=== PATIENT | female | born 1960 | race Caucasian/White ===

== ENCOUNTER 2017-01-12 11:48 | Day surgery (SDC) | payer OTHER ==
[2017-01-12] MEDS ORDERED: LIDOCAINE 1% 5 ML SDV ONE (12:34)
[2017-01-12] MEDS ORDERED: SODIUM BICARBONATE 10 MEQ/10 ML SYR IVP ONE (12:48)
[2017-01-12] MEDS ORDERED: LIDOCAINE 1% 30 ML SDV ONE (12:48)
[2017-01-12] MEDS ORDERED: BUPIVACAINE 0.5% 30 ML SDV ONE (12:48)
[2017-01-12] MEDS ORDERED: CEFAZOLIN 2 GM/DEXTROSE/100 ML BAG IV ONE (12:48)
[2017-01-12] MEDS ORDERED: HEPARIN 50,000 UNIT/10 ML VIAL ONE (12:57)
[2017-01-12] MEDS ORDERED: HEPARIN 50,000 UNIT/10 ML VIAL MISC ONE (13:00)
[2017-01-12] MEDS ORDERED: PROPOFOL 200 MG/20 ML VIAL ONE (13:06)
[2017-01-12] MEDS ORDERED: fentaNYL 100 MCG/2 ML INJ ONE (13:06)
[2017-01-12] MEDS ORDERED: LIDOCAINE 2% JELLY 5 ML TUBE ONE (13:07)
[2017-01-12] MEDS ORDERED: ONDANSETRON 4 MG/2 ML VIAL ONE (13:07)
[2017-01-12] MEDS ORDERED: ceFAZolin 2 GM/DEXTROSE 100 ML IV ONE (13:30)
--- NOTE | 2017-01-12 14:34 | GOP ---
[f rep st] OPERATIVE REPORT DATE OF OPERATION: 01/12/2017 SURGEON: Jean-Paul Epps MD WELFARE SUPERVISOR: None. ANESTHESIOLOGIST: Dr. Hatch PREOPERATIVE DIAGNOSIS: Chronic renal failure. POSTOPERATIVE DIAGNOSIS: Chronic renal failure. PROCEDURE PERFORMED: Right internal jugular tunneled palindrome dialysis catheter with fluoroscopic and ultrasound guidance. FINDINGS: The patient was found to have good position and good flow of the catheter. DESCRIPTION OF PROCEDURE: Patient was taken to the operating room, where she received light general anesthesia by Dr. Hatch. She was placed in the supine position, and prepped and draped in the usua l sterile fashion. Areas of concern were infiltrated with 0.5% Marcaine. Using ultrasound guidance, a direct stick was made into the right internal jugular vein. Guidewire was introduced, position was confirmed on flu oroscopy. A tunneled palindromic catheter was brought in through a separate stab incision on the an terior chest wall and tunneled up over the clavicle into the neck incision. It was then inserted in to the right atrium after a series of dilators were passed over the guidewire and an introducer grant th. Good backflow was achieved. The catheter was flushed with heparin and saline, and then was ins tilled with the appropriate amount of 5000 units/cc heparin, secured to the exit site with 3-0 Prole ne interrupted sutures, and the entrance site was closed with 3-0 Prolene mattress sutures. All are as were infiltrated with 0.5% Marcaine. The wounds were dressed. She tolerated the procedure well, taken to recovery room in good condition. No complications. /[id number]/MODL
== END 2017-01-12 15:30 | disposition home or self-care (01) ==
LOC: FSGY 11:48
PROVIDERS: ATTEND Surgery
PROC: 02HV33Z Insertion of Infusion Device into Superior Vena Cava, Percutaneous Approach (ICD-10-PCS; principal; 2017-01-12 13:45)
DX: Z45.2 Encounter for adjustment and management of vascular access device (principal); N18.9 Chronic kidney disease, unspecified; Q61.3 Polycystic kidney, unspecified; I12.9 Hypertensive chronic kidney disease with stage 1 through stage 4 chronic kidney disease, or unspecified chronic kidney disease
CPT/HCPCS: C1750; J0690; J1644; J2405; J2704; J3010

== ENCOUNTER 2017-01-18 05:39 | Day surgery (SDC) | payer OTHER ==
[2017-01-18] MEDS ORDERED: NS 1,000 ML IV ONE (06:00)
[2017-01-18] MEDS ORDERED: ceFAZolin 2 GM/DEXTROSE 100 ML IV ONE (06:00)
[2017-01-18 06:41] LABS: ANION GAP 20 mEq/L (8-16); CARBON DIOXIDE 15 mEq/l (22-31); CHLORIDE 103 mEq/L (97-110); GLOMERULAR FILTRATION RATE 3; GLUCOSE 103 mg/dL (70-100); POTASSIUM 4.2 mEq/L (3.5-5.2); SODIUM 138 mEq/L (134-144)
[2017-01-18 07:03] LABS: CREATININE 12.6 mg/dL (0.6-1.0)
[2017-01-18] MEDS ORDERED: SKIN ADHESIVE (DERMABOND) 1 EACH TP ONE (07:05)
[2017-01-18] MEDS ORDERED: THROMBIN (RECOMBINANT) 5,000 UNIT VIAL TP ONE (07:06)
[2017-01-18] MEDS ORDERED: THROMBIN (RECOMBINANT) 20,000 UNIT SPRAY TP ONE (07:06)
[2017-01-18] MEDS ORDERED: PROTAMINE SULFATE 50 MG/5 ML VIAL IVP ONE (07:06)
[2017-01-18] MEDS ORDERED: BUPIVACAINE 0.5% 30 ML SDV ONE (07:06)
[2017-01-18] MEDS ORDERED: PAPAVERINE HCL 60 MG/2 ML SDV ONE (07:07)
[2017-01-18] MEDS ORDERED: DEXAMETHASONE 4 MG/ML VIAL ONE ×2 (07:23→07:24)
[2017-01-18] MEDS ORDERED: fentaNYL 100 MCG/2 ML INJ ONE (07:23)
[2017-01-18] MEDS ORDERED: PROPOFOL 200 MG/20 ML VIAL ONE (07:23)
[2017-01-18] MEDS ORDERED: LIDOCAINE 2% 5 ML SDV ONE (07:23)
[2017-01-18] MEDS ORDERED: ONDANSETRON 4 MG/2 ML VIAL ONE (07:24)
[2017-01-18] MEDS ORDERED: LIDOCAINE 2% JELLY 5 ML TUBE ONE (07:24)
[2017-01-18] MEDS ORDERED: HEPARIN 10,000 UNIT/10 ML MDV ONE (07:41)
[2017-01-18] MEDS ORDERED: epHEDrine SULFATE 10 MG/ML SYR ONE (07:46)
[2017-01-18] MEDS ORDERED: HYDROCODONE/APAP 5/325 TAB ONE (10:38)
--- NOTE | 2017-01-26 13:08 | GOP ---
DATE OF OPERATION: 01/18/2017 SURGEON: Jean-Paul Epps MD ANESTHESIOLOGIST PHYSICIAN: NICK Blank ANESTHESIOLOGIST: Dr. Parsons. PREOPERATIVE DIAGNOSIS: Chronic renal failure. POSTOPERATIVE DIAGNOSIS: Chronic renal failure. PROCEDURE PERFORMED: 1. Exploration of the left radial artery. 2. Ultrasound vein mapping. 3. Left brachiocephalic arteriovenous fistula. FINDINGS: Patient was found to have a tiny inadequate radial artery at the wrist and an adequate ce phalic vein at the wrist and in the upper arm. DESCRIPTION OF PROCEDURE: Patient was taken to the operating room, where she received satisfactory general endotracheal anesthesia by Dr. Parsons, placed in the supine position with her left arm outstr etched on an arm board, prepped and draped in the usual sterile fashion. A short longitudinal incis ion was made over the radial artery which was dissected free. It was quite tiny being less than 2 m m even with basal dilators being placed on it. It did not improve. It did not feel adequate for a source for a radiocephalic fistula at the wrist. A 2nd incision was made at the antecubital space. Prior to that the veins of the arm had been mapped with ultrasound thus showing a good cephalic vei n in forearm and upper arm as well as a great basilic vein in the upper arm. Intravenous incision w as made in the antecubital space. Dissection extended over to the cephalic vein which was mobilized above and below this level. The biceps aponeurosis was divided, and the brachial artery was dissec karly free and encircled with vessel loops. The patient was systemically heparinized after adequate m obilization was done and after adequate circulation time, the cephalic vein was ligated distally wit h 2-0 silk ties, was divided and transposed over to the brachial artery. There was good back flow i n the vein. An end-to-side anastomosis was made to the brachial artery creating an 8 mm AV fistula anastomosis. Flow was first established through the AV fistula then back down the hand. Maintained good flow to the hand with good capillary filling, a pulse in the radial artery and excellent flow in the fistula. The anastomosis was created with a running 6-0 Prolene suture. Heparin was then re versed with protamine. The wound was infiltrated with 0.5% Marcaine. Topical thrombin was placed i n the suture sites and the subcu was closed with 3-0 Vicryl, skin with a 4-0 Monocryl subcuticular s titch. Good palpable thrill in the AV fistula. The wound was dressed. She tolerated the procedure well was taken to the recovery room in good condition. There were no complications. /[id number]/MODL
== END 2017-01-18 11:10 | disposition home or self-care (01) ==
LOC: FSGY 05:39
PROVIDERS: ATTEND Surgery
PROC: 03180ZD Bypass Left Brachial Artery to Upper Arm Vein, Open Approach (ICD-10-PCS; principal; 2017-01-18 07:15)
DX: Q61.3 Polycystic kidney, unspecified (principal); I12.9 Hypertensive chronic kidney disease with stage 1 through stage 4 chronic kidney disease, or unspecified chronic kidney disease; N18.9 Chronic kidney disease, unspecified
CPT/HCPCS: J0690; J1100; J1644; J2405; J2440; J2704; J2720; J3010

== ENCOUNTER 2017-08-14 14:40 | Emergency (ER) | payer OTHER ==
--- NOTE | 2017-08-14 15:04 | EDPHY ---
H & P Stated Complaint: Dialysis fistula not working;last dialysis yesterday;here for IR? Time Seen by Provider: 08/14/17 14:50 HPI/ROS: CHIEF COMPLAINT: Fistula issue HISTORY OF PRESENT ILLNESS: The patient is a 56-year-old female with history of chronic kidney disease, on thrice weekly dialysis, who presents today with an acute fistula issue. The patient was dialyzed yesterday at the [facility], at that time she had no fistula problems. Mid-afternoon today the patient no longer had a thrill from her fistula. She developed a bump at the fistula site that is mildly painful. She undergoes dialysis Mon/Wed/Fri. The patient additionally reports multiple episodes of diarrhea from 2am last night until 11am today. She had associated nausea, abdominal cramping, and clamminess. She believes the diarrhea was secondary to a phosphate absorbing medication that she recently started. The patient is feeling much better now. REVIEW OF SYSTEMS: A ten point review of systems was performed and is negative with the exception of the items mentioned in the HPI. Past medical history: Polycystic kidney, CKD on dialysis. Past surgical history: Denies aside from dialysis access. Family history: Noncontributory. Social history: . Lives in [place]. General Appearance: Alert. Vital signs reviewed. Heart rate 106, blood pressure 97/72. Eyes: Pupils equal and round, no conjunctival injection, no discharge. Anicteric. ENT, Mouth: Mucous membranes are moist, no oropharyngeal erythema or edema. Neck: No jugular venous distention. Respiratory: Lungs are clear to auscultation; no wheezes, rales, or rhonchi. Cardiovascular: Regular rate and rhythm; no murmur, rub, or gallop. Gastrointestinal: Abdomen is soft and nontender, hepatomegaly, mild distention. Skin: Warm and dry, no rashes on exposed skin, normal color. Back: No CVAT. Extremities: Left upper extremity: Well healed surgical incision at site of dialysis access. No palpable thrill. Venous bruising from dialysis. Tender pulsatile bump in antecubital fossa. Neurological: Alert and oriented. Moving all four extremities easily and equally. Psychiatric: Normal affect. Source: Patient Exam Limitations: No limitations - Personal History Current Tetanus Diphtheria and Acellular Pertussis (TDAP): Yes - Medical/Surgical History Hx Asthma: No Hx Chronic Respiratory Disease: No Hx Diabetes: No Hx Cardiac Disease: No Hx Renal Disease: No Hx Cirrhosis: No Hx Alcoholism: No Hx HIV/AIDS: No Hx Splenectomy or Spleen Trauma: No Other PMH: PSH: appy; t&a;. PMH: polycystic kidney disease; htn; - Social History Smoking Status: Former smoker Constitutional: Initial Vital Signs Temperature (C) 36.7 C 08/14/17 14:43 Heart Rate 106 H 08/14/17 14:43 Respiratory Rate 18 08/14/17 14:43 Blood Pressure 97/72 L 08/14/17 14:43 O2 Sat (%) 98 08/14/17 14:43 O2 Delivery Mode Room Air Allergies/Adverse Reactions: midazolam HCl [From Versed] Allergy (Unknown, Verified 08/15/17 10:30) Home Medications: Medication Instructions Recorded Lisinopril 12/06/15 Metoprolol Tartrate 01/15/17 Medical Decision Making - Diagnostics Imaging Results: Imaging Impressions Angioplasty 08/14/17 00:00 Impression: 1. Clotted fistula from a very focalized arterial plug at the arterial anastomosis. 2. Declot performed using Ben thrombectomy, as well as TPA lysis and angioplasty. 3. No significant arterial anastomotic stenosis identified. I am speculating that this clotted because the patient was holding her elbow in a kinked position with her 10 hour history of vomiting. This was discussed with the patient, who is instinctively felt that that probably is the case. 4. No venous outflow tract stenosis. Now widely patent fistula with rapid antegrade flow. 5. A little bit of a filling defect left that is not hemodynamically significant where the sheath went into the fistula. This likely will resolve over time. The patient was recovered in the emergency room and subsequently discharged from the emergency room. Infusion Thrombolysis 08/14/17 00:00 Impression: 1. Clotted fistula from a very focalized arterial plug at the arterial anastomosis. 2. Declot performed using Ben thrombectomy, as well as TPA lysis and angioplasty. 3. No significant arterial anastomotic stenosis identified. I am speculating that this clotted because the patient was holding her elbow in a kinked position with her 10 hour history of vomiting. This was discussed with the patient, who is instinctively felt that that probably is the case. 4. No venous outflow tract stenosis. Now widely patent fistula with rapid antegrade flow. 5. A little bit of a filling defect left that is not hemodynamically significant where the sheath went into the fistula. This likely will resolve over time. The patient was recovered in the emergency room and subsequently discharged from the emergency room. AV Shunt Angiogram 08/14/17 15:15 Impression: 1. Clotted fistula from a very focalized arterial plug at the arterial anastomosis. 2. Declot performed using Ben thrombectomy, as well as TPA lysis and angioplasty. 3. No significant arterial anastomotic stenosis identified. I am speculating that this clotted because the patient was holding her elbow in a kinked position with her 10 hour history of vomiting. This was discussed with the patient, who is instinctively felt that that probably is the case. 4. No venous outflow tract stenosis. Now widely patent fistula with rapid antegrade flow. 5. A little bit of a filling defect left that is not hemodynamically significant where the sheath went into the fistula. This likely will resolve over time. The patient was recovered in the emergency room and subsequently discharged from the emergency room. ED Course/Re-evaluation: The patient has a history of CKD, on dialysis. This afternoon she developed a tender bump at the antecubital fossa, with no palpable thrill present. I would like to check the patient's IR fistula gram. Due to recent bouts of diarrhea, I would like to check basic lab work including BMP and CBC. 5:40 p.m.: I spoke to Dr. Donato, she was able to clear the fistula. The patient is fine to go home. She may proceed with dialysis as scheduled. I re-evaluated the patient at 5:45 p.m... There is a palpable thrill from the fistula, no bleeding. She has had no vomiting or diarrhea in the emergency department. Differential Diagnosis: I considered a differential diagnosis that includes but is not limited to fistula occluded by clot, anastomotic stenosis at either arterial or venous site , and infection. - Data Points Laboratory Results: Laboratory Results 08/14/17 15:35 08/14/17 15:35 Departure - Departure Disposition: Home, Routine, Self-Care Clinical Impression: AV fistula occlusion Qualifiers: Encounter type: initial encounter Qualified Code(s): T82.898A - Other specified complication of vascular prosthetic devices, implants and grafts, initial encounter Condition: Good Instructions: Additional Information Additional Instructions: Followup with your social media strategist as needed. Continue with dialysis as scheduled. Return to the Emergency Department with new or worsening symptoms. Referrals: SKAGGS,UNKNOWN [Other] - As per Instructions Demetrius Hartmann MD [Medical Doctor] - As per Instructions Report Scribed for: Daisy Yanes Report Scribed by: Karine Parra Date of Report: 08/14/17 Time of Report: 15:11 Physician Review and Approval Statement: 08/14/17 15:11 Portions of this note were transcribed by the emergency medical tech. I, Dr. Daisy Yanes, personally performed the history, physical exam, and medical decision- making; and confirmed the accuracy of the information in the transcribed note.
[2017-08-14 15:47] LABS: % IMMATURE GRANULYOCYTES 0.4 % (0.0-1.1); ABSOLUTE IMMATURE GRANULOCYTES 0.04 10^3/uL (0.00-0.10); ADD DIFF? NO; ADD MORPH? NO; ADD SCAN? NO; ATYPICAL LYMPHOCYTE FLAG 0 (0-99); FRAGMENT RBC FLAG 0 (0-99); HEMATOCRIT 42.4 % (38.0-47.0); HEMOGLOBIN 13.3 g/dL (12.6-16.3); LEFT SHIFT FLG 0 (0-99); LIPEMIA HEMOLYSIS FLAG 80 (0-99); MEAN CELL HEMOGLOBIN 31.8 pg (27.9-34.1); MEAN CELL HEMOGLOBIN CONCENTR. 31.4 g/dL (32.4-36.7); MEAN CELL VOLUME 101.4 fL (81.5-99.8); MEAN PLATELET VOLUME 9.7 fL (8.7-11.7); PLATELET CLUMPS FLAG 0 (0-99); PLATELET COUNT 331 10^3/uL (150-400); RED BLOOD CELL COUNT 4.18 10^6/uL (4.18-5.33); RED CELL DISTRIBUTION WIDTH 14.6 % (11.5-15.2)
[2017-08-14] MEDS ORDERED: ALTEPLASE 2 MG VIAL ONE (15:49)
[2017-08-14] MEDS ORDERED: IOPAMIDOL (ISOVUE-300) 100 ML BTL ONE ×2 (16:04→17:21)
[2017-08-14 16:07] LABS: ANION GAP 20 mEq/L (8-16); CARBON DIOXIDE 24 mEq/l (22-31); CHLORIDE 93 mEq/L (97-110); CREATININE 5.9 mg/dL (0.6-1.0); GLOMERULAR FILTRATION RATE 7; GLUCOSE 132 mg/dL (70-100); POTASSIUM 5.4 mEq/L (3.5-5.2); SODIUM 137 mEq/L (134-144)
[2017-08-14] MEDS ORDERED: fentaNYL 100 MCG/2 ML INJ ONE (16:12)
[2017-08-14 17:47] VITALS: BP 119/86; PULSE 87; RESP 16; TEMP 98.2; O2SAT 90
== END 2017-08-14 17:59 | disposition home or self-care (01) ==
PROC: 05CY3ZZ Extirpation of Matter from Upper Vein, Percutaneous Approach (ICD-10-PCS; principal; 2017-08-14)
DX: T82.898A Other specified complication of vascular prosthetic devices, implants and grafts, initial encounter (principal); N18.6 End stage renal disease; I12.0 Hypertensive chronic kidney disease with stage 5 chronic kidney disease or end stage renal disease; Z87.891 Personal history of nicotine dependence; Z99.2 Dependence on renal dialysis; Y71.2 Prosthetic and other implants, materials and accessory cardiovascular devices associated with adverse incidents
CPT/HCPCS: 36905; 99152; 99153; 99283; C1769; C1894; C1725; J1644; J2997; J3010; Q9967

== ENCOUNTER 2017-08-15 10:27 | Emergency (ER) | payer OTHER ==
[2017-08-15 10:33] VITALS: RESP 18
--- NOTE | 2017-08-15 11:11 | EDPHY ---
HPI/HX/ROS/PE/MDM Narrative: CHIEF COMPLAINT: Fistula issue HISTORY OF PRESENT ILLNESS: The patient is a 56 y/o female with a history of chronic kidney disease arriving with her complaining of a fistula issue. She was evaluated in the ED yesterday for a clotted AV fistula and required an angioplasty and shunt with TPA by interventional radiology. She returned to the ED today for reevaluation because she has not been able to palpate a thrill in the fistula since returning home. She additionally complains diarrhea that has improved since yesterday. Her fever has resolved. No abdominal pain, fever, chills, chest pain, shortness of breath, palpitations , vomiting, urinary complaints, headache, lightheadedness. REVIEW OF SYSTEMS: Aside from elements discussed in the HPI, a comprehensive 10-point review of systems was reviewed and is negative. PAST MEDICAL HISTORY: Renal failure from polycystic kidney disease, on transplant list. Dialysis 3x per week at [facility] Prior medical records reviewed including ED visit yesterday 08/14/17 for clotted fistula. SOCIAL HISTORY: at bedside. Lives in [place]. VITAL SIGNS: Reviewed by me GENERAL: Well-developed, well-nourished, resting comfortably in no respiratory distress. HEENT:Benign ABDOMEN: Soft, nontender, nondistended, bowel sounds normal. LEFT UPPER EXTREMITY: Fistula site on upper left arm has mild surrounding swelling, no palpable thrill, and only very brief bruit on auscultation. Normal palpable radial and ulnar pulses. Range of motion is normal throughout. NEURO: Alert and oriented, grossly nonfocal. SKIN: Warm and dry, no rash. PSYCHIATRIC: Normal mentation, no agitation. Portions of this note were transcribed by a medical technologist hematology. I personally performed a history, physical exam, medical decision making, and confirmed accuracy of information the transcribed note. (Laurence Rivers) ED Course: 15 10: I assumed care of this patient from Dr. Rivers. The patient is at Interventional Radiology. I know her from her visit last night. Patient was examined immediately upon her return from Interventional Radiology. She has a palpable thrill running the full extent of her AV fistula, up into her neck. She was re-examined at 5:40 p.m. and continues with palpable thrill up into her neck. She is given aftercare instructions. Dr. Guzman is aware of the patient's two visits to the emergency department and will relay this information to Dr. Epps. (Daisy Yanes) 1130: Consulted with Dr. Donato, interventional radiologist who performed angioplasty yesterday. 1500: Patient is currently undergoing IR intervention in the IR suite at shift change. (Laurence Rivers) I did not participate in the care of this pt. (Tiana Hadley) - Data Points Imaging Results: Imaging Impressions AV Shunt Angiogram 08/15/17 00:00 Impression: 1. Complete reclotting of the left upper extremity fistula. 2. Declot performed, as above. 3. Both ultrasound and venographic interrogation at the end of the case shows no residual stenosis, dissection, irregularity, or clot. 4. It is still a mystery as to why patient clotted both times. Arterial anastomotic issue is the most likely cause, which is right at the antecubital fossa. Could it be possible that there is some scar formation there that with the elbow straight it does not pose problems, but as the patient uses the arm, it creates a kink? 5. If patient reclots again, I would recommend surgical revision, specifically of the arterial anastomosis if attempt were to be made to preserve this fistula. Competitive vein can subsequently be tied off. Patient can receive a tunneled dialysis catheter prior to dialysis at that time. All the above are discussed in detail with the patient, as well as her and Dr. Daisy Yanes. I asked all three people to feel the pulse in the existing fistula right when she went back to the emergency room. Currently, this fistula can be felt from the arterial anastomosis all the way up her arm, bounding, all the way up her neck at the cephalic inlet. Patient and her confirmed that this is normally what she feels. Angioplasty 08/15/17 00:00 Impression: 1. Complete reclotting of the left upper extremity fistula. 2. Declot performed, as above. 3. Both ultrasound and venographic interrogation at the end of the case shows no residual stenosis, dissection, irregularity, or clot. 4. It is still a mystery as to why patient clotted both times. Arterial anastomotic issue is the most likely cause, which is right at the antecubital fossa. Could it be possible that there is some scar formation there that with the elbow straight it does not pose problems, but as the patient uses the arm, it creates a kink? 5. If patient reclots again, I would recommend surgical revision, specifically of the arterial anastomosis if attempt were to be made to preserve this fistula. Competitive vein can subsequently be tied off. Patient can receive a tunneled dialysis catheter prior to dialysis at that time. All the above are discussed in detail with the patient, as well as her and Dr. Daisy Yanes. I asked all three people to feel the pulse in the existing fistula right when she went back to the emergency room. Currently, this fistula can be felt from the arterial anastomosis all the way up her arm, bounding, all the way up her neck at the cephalic inlet. Patient and her confirmed that this is normally what she feels. Arterial Thrombectomy 08/15/17 00:00 Impression: 1. Complete reclotting of the left upper extremity fistula. 2. Declot performed, as above. 3. Both ultrasound and venographic interrogation at the end of the case shows no residual stenosis, dissection, irregularity, or clot. 4. It is still a mystery as to why patient clotted both times. Arterial anastomotic issue is the most likely cause, which is right at the antecubital fossa. Could it be possible that there is some scar formation there that with the elbow straight it does not pose problems, but as the patient uses the arm, it creates a kink? 5. If patient reclots again, I would recommend surgical revision, specifically of the arterial anastomosis if attempt were to be made to preserve this fistula. Competitive vein can subsequently be tied off. Patient can receive a tunneled dialysis catheter prior to dialysis at that time. All the above are discussed in detail with the patient, as well as her and Dr. Daisy Yanes. I asked all three people to feel the pulse in the existing fistula right when she went back to the emergency room. Currently, this fistula can be felt from the arterial anastomosis all the way up her arm, bounding, all the way up her neck at the cephalic inlet. Patient and her confirmed that this is normally what she feels. Infusion Thrombolysis 08/15/17 00:00 Impression: 1. Complete reclotting of the left upper extremity fistula. 2. Declot performed, as above. 3. Both ultrasound and venographic interrogation at the end of the case shows no residual stenosis, dissection, irregularity, or clot. 4. It is still a mystery as to why patient clotted both times. Arterial anastomotic issue is the most likely cause, which is right at the antecubital fossa. Could it be possible that there is some scar formation there that with the elbow straight it does not pose problems, but as the patient uses the arm, it creates a kink? 5. If patient reclots again, I would recommend surgical revision, specifically of the arterial anastomosis if attempt were to be made to preserve this fistula. Competitive vein can subsequently be tied off. Patient can receive a tunneled dialysis catheter prior to dialysis at that time. All the above are discussed in detail with the patient, as well as her and Dr. Daisy Yanes. I asked all three people to feel the pulse in the existing fistula right when she went back to the emergency room. Currently, this fistula can be felt from the arterial anastomosis all the way up her arm, bounding, all the way up her neck at the cephalic inlet. Patient and her confirmed that this is normally what she feels. Medications Given: Discontinued Medications Alteplase, Recombinant 2 mg/ (Sodium Chloride) 10 mls @ 0 mls/hr IV ONCE ONE PRN Reason: Per Protocol Stop: 08/15/17 12:18 Last Admin: 08/15/17 13:48 Dose: Not Given General Time Seen by Provider: 08/15/17 11:00 Initial Vital Signs: Initial Vital Signs Temperature (C) 36.5 C 08/15/17 10:31 Heart Rate 101 H 08/15/17 10:31 Respiratory Rate 18 08/15/17 10:31 Blood Pressure 124/81 H 08/15/17 10:31 O2 Sat (%) 98 08/15/17 10:31 O2 Delivery Mode Room Air Allergies/Adverse Reactions: midazolam HCl [From Versed] Allergy (Unknown, Verified 08/15/17 10:30) Home Medications: Medication Instructions Recorded Lisinopril 12/06/15 Metoprolol Tartrate 01/15/17 Departure - Departure Disposition: Home, Routine, Self-Care Clinical Impression: AV fistula occlusion Qualifiers: Encounter type: subsequent encounter Qualified Code(s): T82.898D - Other specified complication of vascular prosthetic devices, implants and grafts, subsequent encounter Condition: Good Additional Instructions: Do not wear any tight or restrictive clothing around your arm. Followup with your side panel padder as needed. Continue with dialysis as scheduled. Return to the Emergency Department with new or worsening symptoms. Referrals: KATYA SKAGGS [Other] - As per Instructions Report Scribed for: Laurence Rivers Report Scribed by: Natty Rose Date of Report: 08/15/17 Time of Report: 11:12
[2017-08-15] MEDS: ALTEPLASE IV ONE ×2 (12:32→13:48)
[2017-08-15] MEDS: NS IV ONE ×2 (12:32→13:48)
[2017-08-15] MEDS ORDERED: fentaNYL 100 MCG/2 ML INJ ONE ×2 (15:02→15:34)
[2017-08-15] MEDS ORDERED: IOPAMIDOL (ISOVUE-300) 100 ML BTL ONE ×2 (15:45→16:36)
[2017-08-15 17:43] VITALS: BP 133/79; PULSE 82; TEMP 97.9; O2SAT 97
== END 2017-08-15 17:47 | disposition home or self-care (01) ==
DX: T82.898D Other specified complication of vascular prosthetic devices, implants and grafts, subsequent encounter (principal); N18.6 End stage renal disease; Z99.2 Dependence on renal dialysis; Y71.2 Prosthetic and other implants, materials and accessory cardiovascular devices associated with adverse incidents
CPT/HCPCS: 99152; 99153; 99283; C1769; C1894; C1725; J1644; J2997; J3010; Q9967